=== PATIENT | female | born 1965 | race Caucasian/White ===

== ENCOUNTER → 2017-02-11 | Outpatient (CLI) | payer BC ==
[2017-02-11 09:23] LABS: ALT 38 U/L (9-52); AST 17 U/L (14-36); Alkaline Phosphatase 91 U/L (38-126); Anion Gap 10 mmol/L; Blood Urea Nitrogen 16 mg/dL (7-17); Calcium 9.3 mg/dL (8.4-10.2); Carbon Dioxide 22 mmol/L (22-30); Chloride 108 mmol/L (98-107); Cholesterol 198 mg/dL (<200); Glucose 95 mg/dL (74-99); HDL Cholesterol 50 mg/dL (40-60); Non-African American GFR(MDRD) >60 (>60 ml/min/1.73 sqM); Potassium 4.3 mmol/L (3.5-5.1); Sodium 140 mmol/L (137-145); Total Bilirubin 0.7 mg/dL (0.2-1.3); Total Protein 6.8 g/dL (6.3-8.2); Triglycerides 77 mg/dL (<150)
== END | disposition home or self-care (01) ==
LOC: LABWHC1 08:37
PROVIDERS: ATTEND Internal Medicine Critical Care Medicine
DX: Z00.00 Encounter for general adult medical examination without abnormal findings (principal); C85.90 Non-Hodgkin lymphoma, unspecified, unspecified site; K21.9 Gastro-esophageal reflux disease without esophagitis; D63.8 Anemia in other chronic diseases classified elsewhere; D68.61 Antiphospholipid syndrome
CPT/HCPCS: 36415; 80053; 80061; 82306; 83036; 84439; 84443

== ENCOUNTER → 2017-07-23 | Outpatient (CLI) | payer BC ==
--- NOTE | 2017-07-23 12:17 | US ---
EXAMINATION TYPE: US thyroid st tissue head/neck DATE OF EXAM: 07/23/2017 COMPARISON: NONE CLINICAL HISTORY: R22.0 Localized swelling, mass and lump, head. tenderness within throat previous cyst aspirations GLAND SIZE: Right Lobe: 4.2 x 1.4 x 2.1 cm Overall Parenchyma: heterogenous Left Lobe: 4.6 x 1.2 x 2.2 cm Overall Parenchyma: heterogeneous Isthmus Thickness: 0.7 cm NODULES RIGHT: # of nodules measured on right: 0 LEFT: # of nodules measured on left: 0 ISTHMUS: # of nodules measured in the isthmus: 0 Bilateral neck scanned, no evidence of lymphadenopathy. Diffusely heterogeneous lobes bilaterally, with no defined nodules to follow up with at this time IMPRESSION: Diffusely heterogeneous thyroid gland with no discrete measurable thyroid nodule. Finding may relate to goiter with involuting previously seen subcentimeter cysts or thyroiditis in the setting of a tend er thyroid gland. Correlation with serum laboratory values is recommended.
== END | disposition home or self-care (01) ==
LOC: RADUSWWP 07:14
PROVIDERS: ATTEND Internal Medicine Critical Care Medicine
DX: R22.0 Localized swelling, mass and lump, head (principal); Z88.2 Allergy status to sulfonamides
CPT/HCPCS: 76536

== ENCOUNTER → 2018-01-09 | Outpatient (CLI) | payer BC ==
[2018-01-09 09:44] LABS: Basophils % (A) 1 %; Eosinophils # (A) 0.1 k/uL (0-0.7); Eosinophils % (A) 1 %; HGB 13.6 gm/dL (11.4-16.0); Lymphocytes # (A) 1.1 k/uL (1.0-4.8); Lymphocytes % (A) 16 %; MCH 28.6 pg (25.0-35.0); MCHC 34.1 g/dL (31.0-37.0); MCV 83.9 fL (80.0-100.0); Mean Platelet Volume 6.6; Monocytes # (A) 0.3 k/uL (0-1.0); Monocytes % (A) 4 %; Neutrophils # (A) 5.1 k/uL (1.3-7.7); Neutrophils % (A) 77 %; Platelet Count 293 k/uL (150-450); RBC 4.77 m/uL (3.80-5.40); WBC 6.6 k/uL (3.8-10.6)
[2018-01-09 10:01] LABS: ALT 24 U/L (9-52); AST 19 U/L (14-36); Albumin 4.1 g/dL (3.5-5.0); Alkaline Phosphatase 104 U/L (38-126); Anion Gap 12 mmol/L; Blood Urea Nitrogen 14 mg/dL (7-17); Calcium 9.5 mg/dL (8.4-10.2); Carbon Dioxide 25 mmol/L (22-30); Chloride 103 mmol/L (98-107); Cholesterol 193 mg/dL (<200); Glucose 93 mg/dL (74-99); HDL Cholesterol 49 mg/dL (40-60); LDL Cholesterol,Calculated 124 mg/dL (0-99); Potassium 4.5 mmol/L (3.5-5.1); Sodium 140 mmol/L (137-145); Total Bilirubin 0.7 mg/dL (0.2-1.3); Total Protein 6.6 g/dL (6.3-8.2); Triglycerides 101 mg/dL (<150)
[2018-01-09 10:13] LABS: T4, Free (Free Thyroxine) 1.16 ng/dL (0.78-2.19)
[2018-01-09 18:50] LABS: Hemoglobin A1C 4.9 % (4.0-6.0)
== END | disposition home or self-care (01) ==
LOC: LABWHC1 09:15
PROVIDERS: ATTEND Internal Medicine Critical Care Medicine
DX: Z00.00 Encounter for general adult medical examination without abnormal findings (principal); C85.90 Non-Hodgkin lymphoma, unspecified, unspecified site; D64.9 Anemia, unspecified; K21.9 Gastro-esophageal reflux disease without esophagitis; F42.9 Obsessive-compulsive disorder, unspecified; D68.1 Hereditary factor XI deficiency; G43.909 Migraine, unspecified, not intractable, without status migrainosus
CPT/HCPCS: 36415; 80053; 80061; 82306; 83036; 84439; 84443; 85025

== ENCOUNTER → 2018-06-08 | Outpatient (CLI) | payer BC ==
[2018-06-08 08:53] LABS: Anion Gap 8 mmol/L; Blood Urea Nitrogen 18 mg/dL (7-17); Calcium 9.3 mg/dL (8.4-10.2); Carbon Dioxide 25 mmol/L (22-30); Chloride 108 mmol/L (98-107); Glucose 96 mg/dL (74-99); Potassium 4.6 mmol/L (3.5-5.1); Sodium 141 mmol/L (137-145)
== END | disposition home or self-care (01) ==
LOC: LABWHC1 07:47
PROVIDERS: ATTEND Psychiatry & Neurology Neurology with Special Qualifications in Child Neurology
DX: R55 Syncope and collapse (principal); T75.3XXA Motion sickness, initial encounter
CPT/HCPCS: 36415; 80048

== ENCOUNTER → 2018-06-25 | Outpatient (CLI) | payer BC ==
--- NOTE | 2018-06-26 07:08 | US ---
EXAMINATION TYPE: US carotid duplex BILAT DATE OF EXAM: 06/25/2018 COMPARISON: NONE CLINICAL HISTORY: R55, T75.3XXAMotion sickness, initial encounter. Pt states recent dizziness EXAM MEASUREMENTS: RIGHT: Peak Systolic Velocity (PSV) cm/sec ----- Right CCA: 56.4 ----- Right ICA: 149.7 ----- Right ECA: 95.3 ICA/CCA ratio: 2.7 RIGHT: End Diastole cm/sec ----- Right CCA: 20.6 ----- Right ICA: 64.0 ----- Right ECA: 16.3 LEFT: Peak Systolic Velocity (PSV) cm/sec ----- Left CCA: 56.7 ----- Left ICA: 128.7 ----- Left ECA: 91.5 ICA/CCA ratio: 2.3 LEFT: End Diastole cm/sec ----- Left CCA: 25.4 ----- Left ICA: 60.8 ----- Left ECA: 20.2 VERTEBRALS (direction of flow): Right Vertebral: Antegrade Left Vertebral: Antegrade Rhythm: Normal Elevated velocities distal ICA's bilaterally, more on right. IMPRESSION: Estimated diameter reduction bilaterally of 50-69% Criteria for Assigning % of Stenosis / Diameter reduction (Estimation based on the indirect measurements of the internal carotid artery velocities (ICA PSV). 1. Normal (no stenosis)=ICA PSV < 125 cm/s: ratio < 2.0: ICA EDV<40 cm/s. 2. Less than 50% stenosis=ICA PSV < 125 cm/s: ratio < 2.0: ICA EDV<40 cm/s. 3. 50 to 69% stenosis=ICA PSV of 125 to 230 cm/s: ration 2.0 ? 4.0: ICA EDV 40-100 cm/s. 4. Greater than 70% stenosis to near occlusion= ICA PSV > 230 cm/s: ratio > 4.0: ICA EDV > 100 cm/s. 5. Near occlusion= ICA PSV velocities may be low or undetectable: variable ratio and ICA EDV. 6. Total occlusion=unable to detect flow.
--- NOTE | 2018-06-26 11:40 | ECHOF ---
Referral Reason:R55. T75.XXA MOTION SICKNESS MEASUREMENTS -------- HEIGHT: 182.9 cm WEIGHT: 95.3 kg BP: IVSd: 1.2 cm (0.6 - 1.1) LVIDd: 3.8 cm (3.9 - 5.3) LVPWd: 1.2 cm (0.6 - 1.1) IVSs: 1.4 cm LVIDs: 2.6 cm LVPWs: 1.6 cm Ao Diam: 2.6 cm (2.0 - 3.7) AV Cusp: 2.0 cm (1.5 - 2.6) LA Diam: 2.6 cm (2.7 - 3.8) MV EXCURSION: 22.560 mm (> 18.000) MV EF SLOPE: 134 mm/s (70 - 150) EPSS: 0.3 cm MV E Chon: 0.80 m/s MV DecT: 204 ms MV A Chon: 0.72 m/s MV E/A Ratio: 1.12 AR PHT: 523 ms RAP: 5.00 mmHg RVSP: 17.51 mmHg FINDINGS -------- Sinus rhythm. This was a technically good study. The left ventricular size is normal. There is mild concentric left ventricular hypertrophy. Overa ll left ventricular systolic function is normal with, an EF between 55 - 60 %. The right ventricle is normal in size. The left atrium is normal in size. The right atrium is normal in size. Aortic valve is trileaflet and is mildly thickened. There is mild aortic regurgitation. The mitral valve leaflets are mildly thickened. There is trace mitral regurgitation. Trace tricuspid regurgitation present. The right ventricular systolic pressure, as measured by Dopp ler, is 17.51mmHg. Pulmonic valve appears structurally normal. The aortic root size is normal. Normal inferior vena cava with normal inspiratory collapse consistent with estimated right atrial pre ssure of 5 mmHg. The pericardium is normal. CONCLUSIONS -------- 1. Sinus rhythm. 2. This was a technically good study. 3. The left ventricular size is normal. 4. There is mild concentric left ventricular hypertrophy. 5. Overall left ventricular systolic function is normal with, an EF between 55 - 60 %. 6. The right ventricle is normal in size. 7. The left atrium is normal in size. 8. The right atrium is normal in size. 9. Aortic valve is trileaflet and is mildly thickened. 10. There is mild aortic regurgitation. 11. The mitral valve leaflets are mildly thickened. 12. There is trace mitral regurgitation. 13. Trace tricuspid regurgitation present. 14. The right ventricular systolic pressure, as measured by Doppler, is 17.51mmHg. 15. Pulmonic valve appears structurally normal. 16. The aortic root size is normal. 17. Normal inferior vena cava with normal inspiratory collapse consistent with estimated right atrial pressure of 5 mmHg. 18. The pericardium is normal. CATTLE KILLER: Sophia Duran RDCS
== END | disposition home or self-care (01) ==
LOC: RADUSWWP 15:45
PROVIDERS: ATTEND Psychiatry & Neurology Neurology with Special Qualifications in Child Neurology
DX: R55 Syncope and collapse (principal); T75.3XXA Motion sickness, initial encounter
CPT/HCPCS: 93306; 93880

== ENCOUNTER → 2018-07-03 | Outpatient (CLI) | payer BC ==
--- NOTE | 2018-07-05 13:23 | MR ---
EXAMINATION TYPE: MR brain wo/w con DATE OF EXAM: 07/03/2018 COMPARISON: None HISTORY: SYNCOPE CONTRAST: Performed utilizing 9.5 mL intravenous Gadavist gadolinium contrast. TECHNIQUE: Multiplanar, multiecho imaging on a 3.0 Kaylie magnet is performed through the brain. Stud y is performed within 24 hours of arrival to the hospital. The craniovertebral junction is normal. There is a hyperintensity on T2-weighted sequences within the mid sella. Pituitary stalk is midline. Suprasellar cistern appears within normal limits. Pituitary cyst may be present. Differential could i nclude a Rathke's cleft cyst. This area appears heterogenous and hypointense on postcontrast T1-weigh felipe images. Recommend dedicated pituitary MRI with contrast for additional evaluation. Diffusion-weighted imaging is performed. No abnormal hyperintensity is present to suggest an acute i ntracranial infarct or acute ischemic change. Signal through the remaining portion brain appears within normal limits. Ventricles and sulci are appropriate for the patient age. Abnormal enhancement is not identified. IMPRESSIONS: 1. Suspected pituitary cyst. Recommend additional workup with contrast pituitary MRI.
== END | disposition home or self-care (01) ==
LOC: RADMRIMAIN 17:16
PROVIDERS: ATTEND Psychiatry & Neurology Neurology with Special Qualifications in Child Neurology
DX: R55 Syncope and collapse (principal); T75.3XXA Motion sickness, initial encounter; G43.009 Migraine without aura, not intractable, without status migrainosus; R20.0 Anesthesia of skin; R20.2 Paresthesia of skin
CPT/HCPCS: 70553; A9585

== ENCOUNTER → 2019-02-03 | Outpatient (CLI) | payer MEDICARE ==
[2019-02-03 11:03] LABS: Basophils % (A) 1 %; Eosinophils # (A) 0.1 k/uL (0-0.7); Eosinophils % (A) 2 %; HCT 42.8 % (34.0-46.0); HGB 13.7 gm/dL (11.4-16.0); Lymphocytes % (A) 16 %; MCH 27.3 pg (25.0-35.0); MCHC 32.1 g/dL (31.0-37.0); MCV 85.2 fL (80.0-100.0); Mean Platelet Volume 7.4; Monocytes # (A) 0.3 k/uL (0-1.0); Monocytes % (A) 4 %; Neutrophils # (A) 4.9 k/uL (1.3-7.7); Neutrophils % (A) 76 %; Platelet Count 281 k/uL (150-450); RBC 5.02 m/uL (3.80-5.40); RDW 14.9 % (11.5-15.5); WBC 6.4 k/uL (3.8-10.6)
[2019-02-03 16:15] LABS: Vitamin D 25 Hydroxy 46.6 ng/mL (30.0-100.0)
[2019-02-03 16:31] LABS: Albumin 4.3 g/dL (3.80-4.90); Albumin/Globulin Ratio 2.26 (1.60-3.17); Anion Gap 6.5 mmol/L (4.00-12.00); Calcium 8.9 mg/dL (8.7-10.3); Carbon Dioxide 25.5 mmol/L (21.6-31.8); Globulin 1.9 g/dL (1.6-3.3); LDL Cholesterol,Calculated 77.4 mg/dL (0.0-131.0); Potassium 4.4 mmol/L (3.5-5.5); Total Bilirubin 0.5 mg/dL (0.2-1.2); Total Protein 6.2 g/dL (6.2-8.2); VLDL Calculation 16.6 mg/dL (5.00-40.00)
[2019-02-03 16:47] LABS: T4, Free (Free Thyroxine) 0.9 ng/dL (0.80-1.80)
[2019-02-03 16:48] LABS: Hemoglobin A1C 5.4 % (4.0-6.0)
[2019-02-03 17:42] LABS: Cardiolipin Ab IgG Interp NEGATIVE (NEGATIVE); Cardiolipin Ab IgM Interp NEGATIVE (NEGATIVE); Cardiolipin IgA Antibody <0.5 U/mL; Cardiolipin IgM Antibody 0.3 U/mL
== END | disposition home or self-care (01) ==
LOC: LABWHC1 10:06
PROVIDERS: ATTEND Psychiatry & Neurology Neurology with Special Qualifications in Child Neurology
DX: Z00.00 Encounter for general adult medical examination without abnormal findings (principal); I80.9 Phlebitis and thrombophlebitis of unspecified site; L92.0 Granuloma annulare; C85.90 Non-Hodgkin lymphoma, unspecified, unspecified site; K76.9 Liver disease, unspecified; D68.61 Antiphospholipid syndrome; K21.9 Gastro-esophageal reflux disease without esophagitis; D64.9 Anemia, unspecified; Z86.73 Personal history of transient ischemic attack (TIA), and cerebral infarction without residual deficits
CPT/HCPCS: 36415; 80053; 80061; 82306; 83036; 84439; 84443; 85025; 86147

== ENCOUNTER → 2019-04-05 | Outpatient (CLI) | payer BC ==
[2019-04-05 16:10] LABS: T4, Free (Free Thyroxine) 0.8 ng/dL (0.80-1.80)
[2019-04-05 17:53] LABS: Hemoglobin A1C 5.5 % (4.0-6.0)
[2019-04-05 18:34] LABS: ACTH 19.7 pg/mL (0.00-45.99)
== END | disposition home or self-care (01) ==
LOC: LABWHC1 08:48
PROVIDERS: ATTEND Internal Medicine Endocrinology, Diabetes & Metabolism
DX: D35.2 Benign neoplasm of pituitary gland (principal)
CPT/HCPCS: 36415; 82024; 82533; 82670; 83001; 83002; 83036; 84146; 84305; 84439; 84443

== ENCOUNTER → 2019-10-26 | Outpatient (CLI) | payer MEDICARE ==
[2019-10-26 07:35] LABS: Basophils % (A) 1 %; Eosinophils # (A) 0.2 k/uL (0-0.7); Eosinophils % (A) 3 %; HCT 40.4 % (34.0-46.0); HGB 13.1 gm/dL (11.4-16.0); Lymphocytes # (A) 1.1 k/uL (1.0-4.8); Lymphocytes % (A) 16 %; MCH 27.6 pg (25.0-35.0); MCHC 32.4 g/dL (31.0-37.0); MCV 85.2 fL (80.0-100.0); Mean Platelet Volume 6.7; Monocytes # (A) 0.3 k/uL (0-1.0); Monocytes % (A) 4 %; Neutrophils # (A) 5.3 k/uL (1.3-7.7); Neutrophils % (A) 74 %; Platelet Count 282 k/uL (150-450); RBC 4.74 m/uL (3.80-5.40); RDW 13.7 % (11.5-15.5); WBC 7.2 k/uL (3.8-10.6)
[2019-10-26 11:29] LABS: African American GFR (CKD) 96.2 (60.0-200.0); Albumin 4.4 g/dL (3.80-4.90); Albumin/Globulin Ratio 2.44 (1.60-3.17); Calcium 9.2 mg/dL (8.7-10.3); Chol/HDL Ratio 3.05; Globulin 1.8 g/dL (1.6-3.3); LDL Cholesterol,Calculated 73.6 mg/dL (0.0-131.0); Potassium 4.2 mmol/L (3.5-5.5); Total Bilirubin 0.4 mg/dL (0.3-1.2); Total Protein 6.2 g/dL (6.2-8.2); VLDL Calculation 14.4 mg/dL (5.00-40.00)
[2019-10-26 14:02] LABS: Hemoglobin A1C 5.2 % (4.0-6.0)
== END | disposition home or self-care (01) ==
LOC: LABWHC1 06:59
PROVIDERS: ATTEND Internal Medicine Critical Care Medicine
DX: C88.0 Waldenstrom macroglobulinemia (principal); C85.90 Non-Hodgkin lymphoma, unspecified, unspecified site; E78.00 Pure hypercholesterolemia, unspecified; I80.9 Phlebitis and thrombophlebitis of unspecified site; K76.9 Liver disease, unspecified; D68.61 Antiphospholipid syndrome; D64.9 Anemia, unspecified
CPT/HCPCS: 36415; 80053; 80061; 82306; 83036; 84439; 84443; 84481; 85025

== ENCOUNTER → 2020-09-05 | Outpatient (CLI) | payer MEDICARE ==
[2020-09-05 09:43] VITALS: BP 115/76; PULSE 92; RESP 18; TEMP 97.5
--- NOTE | 2020-09-05 10:25 | P.HPOB ---
History of Present Illness H&P Date: 09/05/20 Chief Complaint: The patient is here for her routine gynecologic exam. This is a 54-year-old with an LMP of 08/05/2021. Menstrual periods are still regular every month. She has been experiencing more hot flashes. She was tempted to use black cohosh for these symptoms, but was told she should not use this if she has had breast cancer or is at high risk for breast cancer. Therefore, she did not use black cohosh. She is otherwise without complaints. Review of Systems The patient has lost 3 pounds over the last year. She denies respiratory, cardiac, or G.I. problems. Past Medical History Past Medical History: Blood Disorder, Cancer, GERD/Reflux Additional Past Medical History / Comment(s): Waldenstrom lymphoplasmacytic lymphoma 2015, diagnosed at [facility] and tx by Dr. Arellano; spleenomegaly; HYPOGLYCEMIA; ANTIPHOSPHOLIPID ANTIBODY SYNDROME. Migraine. PAST FORMULATION SCIENTIST HISTORY: She has no history of STDs. 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 History of Any Multi-Drug Resistant Organisms: None Reported Past Surgical History: Orthopedic Surgery, Tonsillectomy Additional Past Surgical History / Comment(s): Bone marrow aspirations and biopsies-done at [place] 12/2015, RT ankle/foot surgeryfor fascitis, D&C, hysteroscopy. Colonoscopy 2014(3rd), EGD's 08/2015, bilateral leg vein strippings. Past Anesthesia/Blood Transfusion Reactions: No Reported Reaction Past Psychological History: Anxiety Additional Psychological History / Comment(s): OCD. Pt resides with her spouse and 3 children under age 18yrs. She uses no assistive device. She is completely independent. 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 No recent travels. No animal exposures. Family history is fasting the father of male breast cancer he approximate 4 years after his diagnosis. That was 21 years ago. Smoking Status: Former smoker Past Alcohol Use History: None Reported Additional Past Alcohol Use History / Comment(s): SMOKED 6 YRS ON/OFF, 1/2 PPD- quit in 1997. Past Drug Use History: None Reported Additional History: She is and is a retired schoolteacher. - Past Family History Mother Family Medical History: Cancer Additional Family Medical History / Comment(s): Breast & Kidney cancers. Mother is living. Father Family Medical History: Cancer Additional Family Medical History / Comment(s): Father of breast cancer at the age of 58 yrs. A paternal aunt had breast cancer. The patient is BRCA negative. Medications and Allergies Home Medications Medication Instructions Recorded Confirmed Type Aspirin 325 mg PO DAILY 08/16/15 09/05/20 History Escitalopram [Lexapro] 30 mg PO DAILY 08/16/15 09/05/20 History Ferrous Sulfate [Iron (65 MG 325 mg PO DAILY 01/17/16 09/05/20 History Elemental)] Multivitamins, Thera [Multivitamin 1 tab PO DAILY 01/17/16 09/05/20 History (formulary)] Cholecalciferol [Vitamin D3] 6,000 unit PO DAILY 11/25/18 09/05/20 History Omeprazole 20 mg PO DAILY 11/25/18 09/05/20 History Allergies Allergy/AdvReac Type Severity Reaction Status Date / Time Sulfa (Sulfonamide Allergy Rash/Hives Verified 09/05/20 09:35 Antibiotics) Exam Vital Signs Temp Pulse Resp BP Pulse Ox 09/05/20 09:37 97.5 F L 92 18 115/76 99 Intake and Output 09/04/20 09/05/20 09/05/20 22:59 06:59 14:59 Other: Weight 96.162 kg Height 5 feet 10 inches, weight 212 pounds, BMI 30.4. This is a well-developed well-nourished white female who is alert and oriented times 3 in no acute distress. HEENT: Within normal limits. NECK: Supple without mass or thyromegaly. CHEST AND LUNGS: Clear to auscultation. HEART: Regular rate and rhythm. BREASTS: Are without mass or discharge. AXILLARY EXAM: Negative for adenopathy. BACK: Negative for CVA tenderness. ABDOMEN: Soft, nontender, without palpable masses. PELVIC EXAM: Normal external genitalia. Cervix and vagina appear normal. There is no unusual discharge. There is no evidence of prolapse. The uterus is retroverted, multiparous nongravid size and nontender. There are no palpable adnexal masses or tenderness. RECTAL EXAM: Rectovaginal exam is negative for mass or tenderness and is negative for occult blood. EXTREMITIES: Nontender. IMPRESSION: 1. 54-year-old perimenopausal female with normal gynecologic exam. 2. Increasing vasomotor symptoms consistent with the perimenopause. 3. Strong family history of breast cancer. The patient is BRCA negative. PLAN: 1. Pap smear on 11/25/2018 was negative. Pap smear was deferred. 2. Self breast awareness was discussed with the patient. 3. Breast imaging has been done through Dr. Villalobos at [facility]. She continues to have yearly mammograms and yearly MRIs of the breast. These are alternated every 6 months. Her last mammogram per the patient was August 2020 and was normal per the patient. 4. Osteoporosis prevention was discussed. I have stressed the importance of adequate calcium, vitamin D and regular exercise. Recommended amounts of calcium and vitamin D were also discussed. 5. She will keep a menstrual calendar and call if menstrual problems. We have discussed options for vasomotor symptoms. I am recommending against HRT because of her strong family history of breast cancer. Conservative management was discussed. 6. She was advised to return in one year for her annual well woman exam.
== END | disposition home or self-care (01) ==
LOC: WWCWWP 09:27
PROVIDERS: ATTEND Obstetrics & Gynecology
DX: Z53.9 Procedure and treatment not carried out, unspecified reason (principal)

== ENCOUNTER → 2020-11-29 | Outpatient (CLI) | payer MEDICARE ==
[2020-11-29 17:43] LABS: Chol/HDL Ratio 3.26; LDL Cholesterol,Calculated 76.4 mg/dL (0.0-131.0); VLDL Calculation 18.6 mg/dL (5.00-40.00)
[2020-11-29 18:40] LABS: Hemoglobin A1C 5.7 % (4.0-6.0)
== END | disposition home or self-care (01) ==
LOC: LABWHC1 09:19
PROVIDERS: ATTEND Internal Medicine Critical Care Medicine
DX: Z00.00 Encounter for general adult medical examination without abnormal findings (principal); C85.90 Non-Hodgkin lymphoma, unspecified, unspecified site; K21.9 Gastro-esophageal reflux disease without esophagitis; E55.9 Vitamin D deficiency, unspecified; E78.00 Pure hypercholesterolemia, unspecified; D64.9 Anemia, unspecified
CPT/HCPCS: 36415; 80061; 82306; 83036; 84439; 84443

== ENCOUNTER → 2021-04-07 | Outpatient (CLI) | payer MEDICARE ==
[2021-04-07 17:47] LABS: African American GFR (CKD) 112.3 (60.0-200.0); BUN/Creat Ratio 28.57 Ratio (12.00-20.00); Calcium 9.1 mg/dL (8.7-10.3); Non-African American GFR(CKD) 96.9 (60.0-200.0); Potassium 4.1 mmol/L (3.5-5.5)
[2021-04-07 17:57] LABS: Estradiol 70.4 pg/mL
[2021-04-07 17:59] LABS: Follicle Stimulating Hormone 8.8 mIU/mL; Luteinizing Hormone 7.7 mIU/mL; Prolactin 10.1 ng/mL (2.8-29.2)
[2021-04-07 20:33] LABS: Hemoglobin A1C 5.1 % (4.0-6.0)
--- NOTE | 2021-04-10 07:51 | PN ---
PROGRESS NOTE DATE OF SERVICE: 04/09/2021. REASON FOR FOLLOWUP: Right lower extremity wound and bacteremia. INTERVAL HISTORY: Patient is afebrile. The patient is breathing comfortably. Denies any chest pain, shortness of breath. No cough. No nausea. No vomiting. No abdominal pain or worsening pain to the right leg. PHYSICAL EXAMINATION: Blood pressure 155/69 with pulse of 79, temperature 98.4. She is 99% on 2 L nasal cannula. General description is a middle-aged female lying in bed in no distress. Respiratory system: Unlabored breathing. Clear to auscultation anteriorly. Heart S1, S2. Regular rate and rhythm. Abdomen: Soft, no tenderness. Right leg wound superficial with surrounding swelling and redness. Did have a deep wound to the right heel and right big toe area. LABS: No new labs have been obtained today. DIAGNOSTIC IMPRESSION AND PLAN: Patient with right leg venous stasis ulcer with secondary cellulitis with a pressure ulcer of the right heel and wound to the right big toe with concern for secondary deep infection and bacteremia. Patient is covered with Meropenem. Continue local wound care with Medihoney to the heel and Aquacel silver to the leg wound followed by moist compression and close outpatient followup. MMODL / IJN: [id number] /
== END | disposition home or self-care (01) ==
LOC: LABWHC1 09:19
PROVIDERS: ATTEND Internal Medicine
DX: D35.2 Benign neoplasm of pituitary gland (principal); L68.0 Hirsutism
CPT/HCPCS: 36415; 80048; 82024; 82533; 82626; 82670; 83001; 83002; 83036; 84146; 84305; 84403; 84439; 84443

== ENCOUNTER → 2021-06-06 | Outpatient (CLI) | payer MEDICARE ==
[2021-06-06 18:59] LABS: Chol/HDL Ratio 3.47 Ratio; HDL Cholesterol 42.7 mg/dL (40.00-60.00); LDL Cholesterol,Calculated 82.3 mg/dL (0.0-131.0)
== END | disposition home or self-care (01) ==
LOC: LABWHC1 09:47
PROVIDERS: ATTEND Internal Medicine
DX: D35.2 Benign neoplasm of pituitary gland (principal); L68.0 Hirsutism
CPT/HCPCS: 36415; 80061

== ENCOUNTER → 2021-06-20 | Outpatient (CLI) | payer MEDICARE | END | disposition home or self-care (01) | LOC: LABWHC1 09:47 | PROVIDERS: ATTEND Internal Medicine | DX: D35.2 Benign neoplasm of pituitary gland (principal); L68.0 Hirsutism | CPT/HCPCS: 36415; 82627 ==

== ENCOUNTER → 2021-11-06 | Outpatient (CLI) | payer MEDICARE ==
[2021-11-06 16:27] VITALS: BP 134/87; PULSE 74; RESP 18; TEMP 97.6
--- NOTE | 2021-11-06 17:23 | P.HPOB ---
History of Present Illness H&P Date: 11/06/21 Chief Complaint: The patient is here for her routine gynecologic exam. This is a 56-year-old with an LMP of 10/02/2021. Her menstrual periods have become very light and less frequent. From November until April of last year, menstrual periods were about monthly typically lasting 5-6 days. He had 1 menstrual period that lasted 14 days in March. During the fall of last year, she had very scant flow and some spotting about once a month. She had no bleeding in September and just a small amount of spotting on 10/02/2021. She does have mild hot flashes but these seem to BX revealed better than last year. Review of Systems The patient has gained 10 pounds over the last year. She denies respiratory, cardiac, or G.I. problems. Past Medical History Past Medical History: Blood Disorder, Cancer, GERD/Reflux Additional Past Medical History / Comment(s): Waldenstrom lymphoplasmacytic lymphoma 2015, diagnosed at [facility] and tx by Dr. Arellano; spleenomegaly; HYPOGLYCEMIA; ANTIPHOSPHOLIPID ANTIBODY SYNDROME. Migraine. 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 History of Any Multi-Drug Resistant Organisms: None Reported Past Surgical History: Orthopedic Surgery, Tonsillectomy Additional Past Surgical History / Comment(s): Bone marrow aspirations and biopsies-done at [place] 12/2015, RT ankle/foot surgeryfor fascitis, D&C, hysteroscopy. Colonoscopy 2014(3rd), EGD's 08/2015, bilateral leg vein strippings. Past Anesthesia/Blood Transfusion Reactions: No Reported Reaction Past Psychological History: Anxiety Additional Psychological History / Comment(s): OCD. Pt resides with her spouse and 3 children under age 18yrs. She uses no assistive device. She is completely independent. 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 No recent travels. No animal exposures. Family history is fasting the father of male breast cancer he approximate 4 years after his diagnosis. That was 21 years ago. Smoking Status: Former smoker Past Alcohol Use History: None Reported Additional Past Alcohol Use History / Comment(s): SMOKED 6 YRS ON/OFF, 1/2 PPD- quit in 1997. Past Drug Use History: None Reported Additional History: She is and is a retired schoolteacher. - Past Family History Mother Family Medical History: Cancer Additional Family Medical History / Comment(s): Breast & Kidney cancers. Mother is living. Father Family Medical History: Cancer Additional Family Medical History / Comment(s): Father of breast cancer at the age of 58 yrs. A paternal aunt had breast cancer. The patient is BRCA negative. Medications and Allergies Home Medications Medication Instructions Recorded Confirmed Type Aspirin 325 mg PO DAILY 08/16/15 11/06/21 History Escitalopram [Lexapro] 30 mg PO DAILY 08/16/15 11/06/21 History Ferrous Sulfate [Iron (65 MG 325 mg PO DAILY 01/17/16 11/06/21 History Elemental)] Multivitamins, Thera [Multivitamin 1 tab PO DAILY 01/17/16 11/06/21 History (formulary)] Cholecalciferol [Vitamin D3] 6,000 unit PO DAILY 11/25/18 11/06/21 History Omeprazole 20 mg PO DAILY 11/25/18 11/06/21 History Allergies Allergy/AdvReac Type Severity Reaction Status Date / Time Sulfa (Sulfonamide Allergy Rash/Hives Verified 11/06/21 16:22 Antibiotics) Exam Vital Signs Temp Pulse Resp BP Pulse Ox 11/06/21 16:24 97.6 F 74 18 134/87 96 Intake and Output 11/06/21 11/06/21 11/06/21 06:59 14:59 22:59 Other: Weight 100.698 kg Height 5 feet 10 inches, weight 222 pounds, BMI 31.9. This is a well-developed well-nourished white female who is alert and oriented times 3 in no acute distress. HEENT: Within normal limits. NECK: Supple without mass or thyromegaly. CHEST AND LUNGS: Clear to auscultation. HEART: Regular rate and rhythm. BREASTS: Are without mass or discharge. AXILLARY EXAM: Negative for adenopathy. BACK: Negative for CVA tenderness. ABDOMEN: Soft, nontender, without palpable masses. PELVIC EXAM: Normal external genitalia. Cervix and vagina appear normal. There is no unusual discharge. There is no evidence of prolapse. The uterus is midposition, nongravid size and nontender. There are no palpable adnexal masses or tenderness. RECTAL EXAM: Rectovaginal exam is negative for mass or tenderness and is negative for occult blood. EXTREMITIES: Nontender. IMPRESSION: 1. 56-year-old perimenopausal female with oligomenorrhea and mild vasomotor symptoms with normal gynecologic exam. 2. Strong family history of breast cancer. The patient is BRCA negative. PLAN: 1. Pap smear cotest was performed. 2. Self breast awareness was discussed with the patient. We have also discussed symptoms associated with inflammatory breast cancer. 3. The patient has been doing her mammograms and breast MRIs at [facility]. She has both of them scheduled for the near future. She typically was doing mammograms yearly and MRIs yearly and they were alternated every 6 months, however, she has missed mammograms and MRIs during the past 1-2 years and she was advised to have them both done now. This is done through her breast doctor, Dr. Crane. She is contemplating doing the mammograms and breast MRIs locally at [facility] in the future. 4. Osteoporosis prevention was discussed. I have stressed the importance of adequate calcium, vitamin D and regular exercise. Recommended amounts of calcium and vitamin D were also discussed. 5. She has completed her Covid vaccination series and has received her booster. 6. She was advised to return in one year for her annual well woman exam.
== END ==
LOC: WWCWWP 16:06
PROVIDERS: ATTEND Obstetrics & Gynecology
DX: Z01.419 Encounter for gynecological examination (general) (routine) without abnormal findings (principal); N91.5 Oligomenorrhea, unspecified; G43.909 Migraine, unspecified, not intractable, without status migrainosus; F41.9 Anxiety disorder, unspecified; Z87.891 Personal history of nicotine dependence; Z78.0 Asymptomatic menopausal state; Z80.3 Family history of malignant neoplasm of breast; Z88.2 Allergy status to sulfonamides

== ENCOUNTER → 2021-11-24 | Outpatient (CLI) | payer MEDICARE ==
[2021-11-24 16:14] LABS: ALT 25 U/L (8-44); AST 19 U/L (13-35); African American GFR (CKD) 95.6 (60.0-200.0); Albumin 4.2 g/dL (3.8-4.9); Albumin/Globulin Ratio 1.81 (1.60-3.17); Alkaline Phosphatase 154 U/L (41-126); BUN/Creat Ratio 20.63 Ratio (12.00-20.00); Bilirubin, Conjugated <0.20 mg/dL (0.20-0.40); Blood Urea Nitrogen 16.4 mg/dL (9.0-27.0); Calcium 9.3 mg/dL (8.7-10.3); Carbon Dioxide 23.8 mmol/L (20.0-27.5); Chloride 105 mmol/L (96-109); Chol/HDL Ratio 3.15 Ratio; Globulin 2.3 g/dL (1.6-3.3); Glucose 95 mg/dL (70-110); LDL Cholesterol,Calculated 83.2 mg/dL (0.0-131.0); Non-African American GFR(CKD) 82.5 (60.0-200.0); Potassium 4.6 mmol/L (3.5-5.5); Sodium 141 mmol/L (135-145); Total Protein 6.6 g/dL (6.2-8.2); VLDL Calculation 17.24 mg/dL (5.00-40.00)
== END | disposition home or self-care (01) ==
LOC: LABWHC1 09:42
PROVIDERS: ATTEND Internal Medicine Critical Care Medicine
DX: Z00.00 Encounter for general adult medical examination without abnormal findings (principal); E78.00 Pure hypercholesterolemia, unspecified; K76.9 Liver disease, unspecified; R53.83 Other fatigue; R05.9 Cough, unspecified
CPT/HCPCS: 36415; 80053; 80061; 82248; 82306; 83036; 84439; 84443

== ENCOUNTER → 2023-05-08 | Outpatient (CLI) | payer MEDICARE ==
[2023-05-08 16:25] LABS: Basophils # (A) 0.04 X 10*3/uL (0.00-0.10); Basophils % (A) 0.7 %; Eosinophils # (A) 0.12 X 10*3/uL (0.04-0.35); HCT 42.7 % (37.2-50.0); HGB 13.8 d/dL (12.0-17.0); Lymphocytes # (A) 1.19 X 10*3/uL (0.90-5.00); Lymphocytes % (A) 19.7 %; MCH 29.4 pg (27.0-32.0); MCHC 32.3 d/dL (32.0-37.0); MCV 90.9 FL (80.0-97.0); Mean Platelet Volume 10.1 FL (9.5-12.2); Monocytes # (A) 0.34 X 10*3/uL (0.20-1.00); Monocytes % (A) 5.6 %; NRBC Per 100 WBC 0 X 10*3/uL (0.00-0.01); Neutrophils # (A) 4.31 X 10*3/uL (1.80-7.70); Neutrophils % (A) 71.5 %; Platelet Count 263 X 10*3/uL (140-440); RDW 14.4 % (11.5-14.5); WBC 6.03 X 10*3/uL (4.50-10.00)
[2023-05-08 16:41] LABS: ALT 28 U/L (8-49); AST 23 U/L (13-35); Albumin 4.5 d/dL (3.8-4.9); Albumin/Globulin Ratio 2.05 Ratio (1.60-3.17); Alkaline Phosphatase 145 U/L (41-126); BUN/Creat Ratio 14.78 Ratio (12.00-20.00); Blood Urea Nitrogen 13.3 mg/dL (9.0-27.0); Calcium 9.6 mg/dL (8.7-10.3); Chloride 102 mmol/L (96-109); Chol/HDL Ratio 3.24 Ratio; Globulin 2.2 d/dL (1.6-3.3); Glucose 89 mg/dL (70-110); Potassium 4.8 mmol/L (3.5-5.5); Sodium 140 mmol/L (135-145); T4, Free (Free Thyroxine) 1.03 ng/dL (0.80-1.80); Total Bilirubin 0.4 mg/dL (0.3-1.2); Total Protein 6.7 d/dL (6.2-8.2)
== END | disposition home or self-care (01) ==
LOC: LABWHC1 10:09
PROVIDERS: ATTEND Internal Medicine Critical Care Medicine
DX: I80.9 Phlebitis and thrombophlebitis of unspecified site (principal); C88.0 Waldenstrom macroglobulinemia; C85.90 Non-Hodgkin lymphoma, unspecified, unspecified site; D64.9 Anemia, unspecified; E78.00 Pure hypercholesterolemia, unspecified; K76.9 Liver disease, unspecified; D68.61 Antiphospholipid syndrome
CPT/HCPCS: 36415; 80053; 80061; 82306; 83036; 84439; 84443; 85025

== ENCOUNTER → 2023-07-30 | Outpatient (CLI) | payer MEDICARE ==
--- NOTE | 2023-07-30 11:45 | BD ---
EXAMINATION TYPE: Axial Bone Density DATE OF EXAM: 07/30/2023 CLINICAL HISTORY: 57 years old Female. ICD-10 CODE: Z78.0 POST MENOPAUSAL Height: 69in Weight: 225lb FRAX RISK QUESTIONS: Secondary Osteoporosis: RISK FACTORS HISTORY OF: Family History of Osteoporosis: yes Active: yes Postmenopausal woman: yes Poor Health: fair MEDICATIONS: Additional Medications: cholesterol med, vitamin d, tums Additional History: lymphoma, scoliosis EXAM MEASUREMENTS: Bone mineral densitometry was performed using the Zoyi System. Bone mineral density as measured about the Lumbar spine is: ----- L1-L4(G/cm2): 1.381 T Score Values are as follows: ----- L1: 1.7 ----- L2: 2.1 ----- L3: 1.1 ----- L4: 1.7 ----- L1-L4: 1.7 Z Score Values are as follows: ----- L1: 1.6 ----- L2: 2.0 ----- L3: 1.1 ----- L4: 1.6 ----- L1-L4: 1.6 First dexa at [facility] Bone mineral density about the R hip (g/cm2): 0.984 Bone mineral density about the L hip (g/cm2): 0.946 T Score values are as follows: -----R Neck: -0.3 -----L Neck: -0.6 -----R Total: -0.2 -----L Total: -0.5 Z Score values are as follows: -----R Neck: 0.1 -----L Neck: -0.2 -----R Total: -0.2 -----L Total: -0.5 FRAX%s: The graph provided illustrates a 6% chance for a major osteoporotic fx and a 0.2% chance for the hips probability for fx in 10 years time. IMPRESSION: Normal (Values between +1 and -1 indicate normal bone mass). Consider repeating this study in 5 year s or sooner if there is some new clinical indication. NOTE: T-SCORE=SD OF THE YOUNG ADULT MEAN.
--- NOTE | 2023-08-01 12:36 | MM ---
Reason for Exam: Screening (asymptomatic). Last mammogram was performed 1 year(s) and 8 month(s) ago. Patient History: Menarche at age 11. First Full-Term at age 35. Late child-bearing (after 30). Patient tested for BRCA1 outcome was negative. Patient tested for BRCA2 outcome was negative. Paternal aunt had breast cancer at or over age 50. Maternal cousin had breast cancer at or over age 50. Mother had breast cancer, age 60. Father had breast cancer at or over age 50. Risk Values: Jalyn 5 year model risk: 2.7%. NCI Lifetime model risk: 14.9%. Prior Study Comparison: 10/16/2001 Bilateral Screening Mammogram, [facility]. 01/14/2003 Bilateral Screening Mammogram, [facility]. 11/09/2004 Bilateral Screening Mammogram, [facility]. 08/11/2020 Bilateral Screening Mammogram, Unknown. 11/01/2021 Bilateral Screening Mammogram, Unknown. Tissue Density: There are scattered fibroglandular densities. Findings: Analyzed By CAD. There is no suspicious group of microcalcifications or new suspicious mass. Overall Assessment: Negative, BI-RAD 1 Management: Screening Mammogram of both breasts in [address] [facility] will attempt to contact patient to return for supplemental views and ultrasound if indicated. Patient should continue monthly self-breast exams. A clinical breast exam by your physician is recommended on an annual basis. This exam should not preclude additional follow-up of suspicious palpable abnormalities. Note on Jalyn scores and lifetime risk: 1. A Jalyn score greater than 3% is considered moderate risk. If this is the case, consider specialist referral to assess eligibility for a risk reducing agent. 2. If overall lifetime risk for the development of breast cancer is 20% or higher, the patient may qualify for future screening with alternating mammogram and breast MRI. Electronically signed and approved by: Issa Gillespie DO
== END | disposition home or self-care (01) ==
LOC: RADMAMWWP 07:42
PROVIDERS: ATTEND Obstetrics & Gynecology
DX: Z12.31 Encounter for screening mammogram for malignant neoplasm of breast (principal); Z78.0 Asymptomatic menopausal state; Z80.3 Family history of malignant neoplasm of breast
CPT/HCPCS: 77063; 77067; 77080

== ENCOUNTER → 2023-09-16 | Outpatient (CLI) | payer MEDICARE ==
[2023-09-16 10:40] VITALS: BP 137/90; PULSE 91; RESP 17; TEMP 98.3
--- NOTE | 2023-09-16 10:56 | P.PN ---
Progress Note - Text Progress Note Date: 09/16/23 Chief Complaint: Vaginal spotting for the past month HPI: This is a 57-year-old with an LMP of 06/2022. The patient had been amenorrheic until about 1 month ago when she started having some vaginal spotting. She has noticed spotting most days during the past month, but has not noticed any today. She denies any abdominal or pelvic cramping. She states the bleeding has not been as heavy as a period. The blood has been brownish red in color. She states the bleeding is not associated with sexual intercourse. She did have hot flashes up until about 8 months ago and has not had hot flashes since then. She denies taking any hormone replacement therapy or supplements for menopausal symptoms. ROS: Unremarkable. PE: Blood pressure: 137/90, Height: 5 feet 11 inches, Weight: 228 pounds, Temperature: 98.3, Pulse: 91 pulse oximeter 96%.. This is a well developed, well nourished, White female who is alert and orientedx3, in no acute distress. Abdomen: Soft, nontender, without palpable masses. Pelvic exam: External genitalia with mild atrophy. Cervix and vagina appear normal with mild atrophy. Cervix appears multiparous. There is no unusual discharge and no evidence of blood in the vagina on inspection. There is no cervical motion tenderness. Bimanual examination: Uterus is midposition, nongravid size, and nontender. There are no palpable adnexal masses or tenderness. Last Pap smear on 11/06/2021 showed ASCUS with negative high-risk HPV testing. The plan was to repeat the Pap smear cotest in 2-3 years after the last one. Impression: 1. 57-year-old menopausal female with vaginal spotting after 1-1/2 years of amenorrhea. Postmenopausal bleeding. Plan: 1. Pelvic ultrasound will be scheduled to determine the endometrial thickness. If signs of endometrial thickening, we will plan on sampling the endometrium with an endometrial biopsy. Consideration for progesterone therapy if signs of disordered lining, endometrial hypertrophy, or persistent vaginal bleeding with the above workup. Consider other surgical options if evidence of atypical endometrial hyperplasia or greater. Time spent with the patient: 20 minutes
== END ==
LOC: WWCWWP 10:04
PROVIDERS: ATTEND Obstetrics & Gynecology
DX: N91.2 Amenorrhea, unspecified (principal); N95.0 Postmenopausal bleeding; Z88.2 Allergy status to sulfonamides; Z87.891 Personal history of nicotine dependence

== ENCOUNTER → 2023-09-17 | Day surgery (SDC) | payer MEDICARE ==
[2023-09-17 11:47] VITALS: RESP 17; TEMP 98.3
--- NOTE | 2023-09-17 12:28 | P.PCN ---
Date of Procedure: 09/17/23 Preoperative Diagnosis: Postmenopausal bleeding. Postoperative Diagnosis: Postmenopausal bleeding. Procedure(s) Performed: Endometrial biopsy Anesthesia: none Surgeon: Douglas Birmingham Estimated Blood Loss (ml): 1 Pathology: other (Endometrial tissue) Condition: stable Disposition: same day Indications for Procedure: This was a 57-year-old female with an LMP of 06/2022 who developed vaginal spotting on most days during the past month. She was scheduled for an endometrial biopsy because of the postmenopausal bleeding. Operative Findings: The uterus is multiparous and feels either retroverted or there is the possibility of a posterior uterine fibroid with bimanual examination. The uterus sounded to 8.5 cm. A small amount of tissue was obtained. Description of Procedure: Preprocedure vitals: Blood pressure 156/87, height 5 feet 11 inches, weight 228 pounds, temperature 98.3, pulse 102, pulse oximeter 97%. The procedure was explained to the patient. Possible findings were also discussed with the patient. There is also a discussion of possible risks and complications including bleeding, infection as well as uterine perforation and damage to surrounding structures. All questions were answered. The patient was placed in the lithotomy position. Bimanual examination reveals a multiparous nongravid sized uterus which is either retroverted or the possibility of a posterior uterine fibroid is also considered. There are no palpable adnexal masses or tenderness. A speculum was inserted into the vagina and the cervix and vagina were prepped with Betadine solution. A 3 mm endometrial biopsy instrument was placed to the fundus without difficulty. The uterus sounded to 8.5 cm. Negative pressure was applied and a back and forth rotating motion was used obtain a small amount of tissue. The procedure was rep eated and a small amount of tissue was again obtained. The patient tolerated the procedure well. The estimated blood loss was 1 mL. There were no complications. Postprocedure blood pressure: 149/94, pulse 100, pulse oximeter 96%. Patient was instructed to call if she has heavy bleeding, unusual pain, fever, or problems. She is scheduled for a pelvic ultrasound on 09/19/2023. This will be used to measure the endometrial thickness as well as to see if there are signs of uterine fibroids as this is considered a possibility based on the bimanual examination.
[2023-09-17 12:35] VITALS: BP 149/94; PULSE 100
--- NOTE | 2023-09-17 12:35 | P.PN ---
Progress Note - Text Progress Note Date: 09/17/23 Addendum to the progress note from 09/16/2023. After seeing the patient on 09/16/2023, I decided to that sampling of the endometrial tissue would be the better approach rather than to wait for the pelvic ultrasound since she has been having vaginal bleeding on most days or more than one month. It is likely that endometrial sampling would be indicated regardless of the findings of the pelvic ultrasound. The patient was scheduled for an endometrial biopsy today. See the procedure note for further details. I will continue to have her get the pelvic ultrasound on 09/19/2023 not only to determine endometrial thickness, but to further evaluate the uterus and ovaries. An irregularity is noted on the exam possibly suggestive of a posterior uterine fibroid.
== END ==
LOC: WWCWWP 11:14
PROVIDERS: ATTEND Obstetrics & Gynecology
DX: N84.0 Polyp of corpus uteri (principal); N95.0 Postmenopausal bleeding
CPT/HCPCS: 58100; 88305

== ENCOUNTER → 2023-09-19 | Outpatient (CLI) | payer MEDICARE ==
--- NOTE | 2023-09-19 15:59 | US ---
EXAMINATION TYPE: US pelvis complete transvag DATE OF EXAM: 09/19/2023 COMPARISON: NONE CLINICAL INDICATION: Female, 57 years old with history of N95.0 POST MENOPAUSAL BLEEDING; post dori x 1.5 years, post dori bleeding x 4 weeks, Bx performed 2 days ago TECHNIQUE: Transvaginal (TV) and Transabdominal (TA) . Transabdominal sonographic images of the pel vis were acquired. Transvaginal sonographic images were medically necessary to better assess the fol lowing anatomy: Endometrium Date of LMP: 1.5 yrs ago EXAM MEASUREMENTS: Uterus: 9.3x5.6x5.4 cm Endometrial Stripe: 2.4 cm Right Ovary: 2.0x0.8x1.5 cm Left Ovary: 2.1x1.3x1.6 cm 1. Uterus: Anteverted but intermittently becomes retroverted. There is a very heterogeneous myomet rium. A round area adjacent to the endometrium measures 9 mm. Possible small fibroid. 2. Endometrium: thickened, heterogenous 3. Right Ovary: wnl 4. Left Ovary: wnl 5. Bilateral Adnexa: Obscured by overlying bowel gas 6. Posterior cul-de-sac: wnl Insurance Administrative Assistant notes: Exam limited by bowel, body habitus, and position of uterus IMPRESSION: 1. Tello endometrial heterogeneity and thickening up to 2.4 cm. Differential considerations include e ndometrial carcinoma and endometrial hyperplasia. Appropriate further evaluation recommended. 2. No specific abnormality of the ovaries.
== END | disposition home or self-care (01) ==
LOC: RADUSWWP 13:49
PROVIDERS: ATTEND Obstetrics & Gynecology
DX: N83.8 Other noninflammatory disorders of ovary, fallopian tube and broad ligament (principal); N95.0 Postmenopausal bleeding
CPT/HCPCS: 76830; 76856

== ENCOUNTER → 2023-10-02 | Outpatient (CLI) | payer MEDICARE ==
[2023-10-02 15:21] LABS: Basophils # (A) 0.05 X 10*3/uL (0.00-0.10); Basophils % (A) 0.8 %; Eosinophils # (A) 0.14 X 10*3/uL (0.04-0.35); Eosinophils % (A) 2.2 %; HCT 40.8 % (37.2-50.0); HGB 12.9 g/dL (12.0-17.0); Lymphocytes # (A) 1.12 X 10*3/uL (0.90-5.00); Lymphocytes % (A) 17.5 %; MCH 28.2 pg (27.0-32.0); MCHC 31.6 g/dL (32.0-37.0); MCV 89.3 FL (80.0-97.0); Mean Platelet Volume 9.6 FL (9.5-12.2); Monocytes # (A) 0.52 X 10*3/uL (0.20-1.00); Monocytes % (A) 8.1 %; NRBC Per 100 WBC 0 X 10*3/uL (0.00-0.01); Neutrophils # (A) 4.53 X 10*3/uL (1.80-7.70); Neutrophils % (A) 70.9 %; Platelet Count 261 X 10*3/uL (140-440); RBC 4.57 X 10*6/uL (4.10-5.60); RDW 13.9 % (11.5-14.5); WBC 6.39 X 10*3/uL (4.50-10.00)
== END | disposition home or self-care (01) ==
LOC: LABPAT 10:42
PROVIDERS: ATTEND Obstetrics & Gynecology
DX: Z01.812 Encounter for preprocedural laboratory examination (principal); N95.0 Postmenopausal bleeding; N84.0 Polyp of corpus uteri; R93.89 Abnormal findings on diagnostic imaging of other specified body structures
CPT/HCPCS: 36415; 85025

== ENCOUNTER 2023-10-20 06:32 | Day surgery (SDC) | payer MEDICARE ==
[~2023-10-20 06:32] MED LIST: Pre Op ABX Message 1 EACH MISC MISCELLANE ONE
[2023-10-20] MEDS ORDERED: HYDROmorphone 0.5 MG/0.5 ML SYRINGE IVP PRN (07:00)
[2023-10-20] MEDS: LACTATED RINGERS 1,000 ML IV SCH (07:08)
[2023-10-20] MEDS: ONDANSETRON 4 MG/2 ML VIAL IVP ONE (07:10)
[2023-10-20] MEDS: MIDAZOLAM 2 MG/2 ML VIAL IVP ONE (07:10)
[2023-10-20] MEDS: DEXAMETHASONE SOD PHOSPHATE 4 MG/ML 1 ML VIAL IV ONE (07:10)
[2023-10-20 07:19] LABS: Glucose,Whole Blood 106 mg/dL (70-110)
[2023-10-20] MEDS ORDERED: PROPOFOL 10 MG/ML 20 ML VIAL IV ONE (08:03)
[2023-10-20] MEDS ORDERED: SUCCINYLCHOLINE CHLORIDE 200 MG/10 ML VIAL IV ONE (08:03)
[2023-10-20] MEDS ORDERED: fentaNYL (PF) 50 MCG/ML 2 ML AMP ONE (08:03)
[2023-10-20] MEDS ORDERED: LIDOCAINE 1% INJ 10MG/ML (20 ML MDV) ONE (08:03)
[2023-10-20] MEDS ORDERED: KETOROLAC 15 MG/ML 1 ML VIAL IVP PRN (08:48)
[2023-10-20] MEDS ORDERED: Acetaminophen-Codeine 300-30mg TAB PO PRN ×2 (08:48)
[2023-10-20] MEDS ORDERED: METOCLOPRAMIDE 5 MG/ML 2 ML VIAL IVP PRN (08:48)
[2023-10-20] MEDS ORDERED: ONDANSETRON 4 MG/2 ML VIAL IVP PRN (08:48)
[2023-10-20] MEDS ORDERED: diphenhydrAMINE 50 MG/ML 1 ML VIAL IVP PRN (08:48)
[2023-10-20] MEDS ORDERED: IBUPROFEN 600 MG TAB PO PRN (08:48)
[2023-10-20] MEDS ORDERED: SIMETHICONE 80 MG CHEWABLE PO PRN (08:48)
--- NOTE | 2023-10-20 08:55 | P.OP ---
Date of Procedure: 10/20/23 Preoperative Diagnosis: #1. Postmenopausal bleeding #2. Probable endometrial polyp Postoperative Diagnosis: Same Procedure(s) Performed: #1. Diagnostic hysteroscopy #2. Endometrial polypectomy 3. Endometrial curettage Anesthesia: CORBIN Surgeon: Thanh Leal Estimated Blood Loss (ml): 2 IV fluids (ml): 300 Urine output (ml): 30 Pathology: other (Endometrial curettings and probable polyp) Condition: stable Disposition: PACU Operative Findings: Preoperative pelvic examination demonstrated a 4-5 week retroverted mobile normal shaped uterus with normal adnexa bilaterally. Intraoperatively, the uterus sounded to approximately 8 cm. Using the hysteroscope, the bilateral tubal ostia were seen and the endometrial cavity itself appeared atrophic as a general rule with a fairly large polyp arising from the mid to lower uterine segment on the posterior side filling most the posterior portion of the cavity. It appeared to be removed mostly intact with a polyp forceps. The typical gritty texture was noted throughout the in vitro cavity with sharp curettage. The patient is a borderline candidate for vaginal hysterectomy should become necessary. Description of Procedure: The patient was prepped and draped in usual fashion after general endotracheal anesthesia was administered by the anesthesiologist. A weighted speculum was placed and the bladder drained of approximately 30 mL of clear bhupinder urine. The anterior lip of the cervix was grasped with a single-tooth tenaculum and the uterus sounded to 8 cm as noted above. Serial dilation was carried out to admit the diagnostic hysteroscope which was placed and the cavity was distended with sorbitol. The findings are as noted above with the bilateral tubal ostia seen in general atrophy present throughout. There did appear to be a fairly large polyp arising likely from the posterior portion of the lower endometrial cavity and filling most of the midportion of the cavity. After adequate hysteroscopy was carried out, the scope was set aside and polyp forceps introduced. Several passes with the polyp forceps produced what appeared to be the entire polyp. Small pieces were then removed to follow with nothing of significance noted. A medium sharp curette was introduced into the cavity and thorough and circumferential curettage carried out onto a Telfa placed in the vagina with the typical gritty texture encountered throughout. There was no significant amount of tissue encountered or removed with curettage. All instrumentation was then removed. There is no significant ongoing bleeding either from the cervix or from the tenaculum site. Assessment a blood loss for the case was 2 mL or less. There were no complications. All sponge, instrument, needle counts were correct. The patient tolerated the procedure well and proceeded to the recovery room in stable condition.
[2023-10-20] MEDS ORDERED: LACTATED RINGERS 1,000 ML IV SCH (09:00)
[2023-10-20 09:10] VITALS: TEMP 97.1
[2023-10-20 09:43] VITALS: RESP 16
[2023-10-20 10:14] VITALS: BP 139/78; PULSE 83
[2023-10-21] MEDS ORDERED: ACETAMINOPHEN TAB 325 MG TAB PO PRN (08:50)
== END 2023-10-20 10:12 | disposition home or self-care (01) ==
LOC: OR 06:32
PROVIDERS: ATTEND Obstetrics & Gynecology
DX: N95.0 Postmenopausal bleeding (principal); N84.0 Polyp of corpus uteri; K21.9 Gastro-esophageal reflux disease without esophagitis; E78.5 Hyperlipidemia, unspecified; F41.9 Anxiety disorder, unspecified; F32.A Depression, unspecified; Z98.890 Other specified postprocedural states; Z79.899 Other long term (current) drug therapy; Z90.89 Acquired absence of other organs; Z79.82 Long term (current) use of aspirin; Z88.2 Allergy status to sulfonamides
CPT/HCPCS: 58558; J2250; J0330; J1100; J2405; J2001; J3010; J2704; 88305

== ENCOUNTER 2023-12-03 08:16 | Day surgery (SDC) | payer MEDICARE ==
[2023-12-01 16:26] VITALS: BMI 31.9
[~2023-12-03 08:16] MED LIST changes: +LIDOCAINE 1% (10MG/ML) FOR IV START INTRADERMA PRN; -Pre Op ABX Message 1 EACH MISC MISCELLANE ONE
[2023-12-03] MEDS: LACTATED RINGERS 1,000 ML IV SCH (08:50)
[2023-12-03 08:58] LABS: Glucose,Whole Blood 100 mg/dL (70-110)
[2023-12-03 09:16] VITALS: TEMP 97
[2023-12-03] MEDS ORDERED: PROPOFOL 10 MG/ML 20 ML VIAL IV ONE (09:21)
--- NOTE | 2023-12-03 09:53 | P.PCN ---
Date of Procedure: 12/03/23 Procedure(s) Performed: BRIEF HISTORY: Patient is a 58-year-old pleasant White female scheduled for an elective colonoscopy as a part of Screening for colon cancer. PROCEDURE PERFORMED: ColonoscopyWith snare polypectomy. PREOPERATIVE DIAGNOSIS: Screening for colon cancer. IV sedation per Anesthesia. PROCEDURE: After informed consent was obtained, the patient, was brought into the endoscopy unit. IV sedation was administered by Anesthesia under continuous monitoring. Digital rectal examination was normal. Initially the Olympus CF-160 flexible video colonoscope was then inserted in the rectum, gradually advanced into the Left colon and further advancement was not possible. Scope was then removed and a pediatric colonoscopy was then introduced into the rectum and gradually advanced into the cecum with moderate to severe difficulty.Careful examination was performed as the scope was gradually being withdrawn. Ileocecal valve and the appendiceal orifice were visualized and appeared normal. Prep was excellent. Mucosa of the cecum, ascending colon, transverse colon, descending colon, Appeared normal. In the sigmoid there was a 5 mm sessile polyp removed by cold snare polypectomy. Rest of thesigmoid colon, and rectum appeared normal. Retroflexion was performed in the rectum and no lesions were seen. The patient tolerated the procedure well. IMPRESSION: 5 mm;Sigmoid polyp status post snare polypectomy Rest of the colon appeared normal RECOMMENDATIONS: Findings of this examination were discussed with the patient As well as her family. She was advised to follow with the biopsy results. If the biopsy results adenoma she can have a repeat colonoscopy in.
[2023-12-03 10:05] LABS: Glucose,Whole Blood 100 mg/dL (70-110)
[2023-12-03 11:16] VITALS: BP 131/78; PULSE 77; RESP 18
== END 2023-12-03 10:41 | disposition home or self-care (01) ==
LOC: ORWHC2ENDO 08:16
PROVIDERS: ATTEND Internal Medicine Gastroenterology
DX: Z12.11 Encounter for screening for malignant neoplasm of colon (principal); D12.5 Benign neoplasm of sigmoid colon; E78.5 Hyperlipidemia, unspecified; Z79.899 Other long term (current) drug therapy; Z88.2 Allergy status to sulfonamides; Z79.82 Long term (current) use of aspirin; Z90.89 Acquired absence of other organs; Z98.890 Other specified postprocedural states
CPT/HCPCS: 88305; 45385; J2704

== ENCOUNTER → 2024-04-23 | Outpatient (CLI) | payer MEDICARE | END | disposition home or self-care (01) | LOC: LABWHC1 16:30 | PROVIDERS: ATTEND Ophthalmology | DX: Z53.9 Procedure and treatment not carried out, unspecified reason (principal) ==

== ENCOUNTER → 2024-05-25 | Outpatient (CLI) | payer MEDICARE ==
[2024-05-25 16:27] LABS: Basophils # (A) 0.07 X 10*3/uL (0.00-0.10); Basophils % (A) 1.1 %; Eosinophils # (A) 0.18 X 10*3/uL (0.04-0.35); HCT 41.6 % (37.2-50.0); HGB 13.3 g/dL (12.0-17.0); Lymphocytes # (A) 0.99 X 10*3/uL (0.90-5.00); Lymphocytes % (A) 16.2 %; MCH 28.4 pg (27.0-32.0); MCV 88.9 FL (80.0-97.0); Mean Platelet Volume 10.2 FL (9.5-12.2); Monocytes # (A) 0.35 X 10*3/uL (0.20-1.00); Monocytes % (A) 5.7 %; NRBC Per 100 WBC 0 X 10*3/uL (0.00-0.01); Neutrophils # (A) 4.49 X 10*3/uL (1.80-7.70); Neutrophils % (A) 73.7 %; Platelet Count 272 X 10*3/uL (140-440); RBC 4.68 X 10*6/uL (4.10-5.60); RDW 14.1 % (11.5-14.5)
[2024-05-25 17:11] LABS: ALT 25 U/L (8-49); AST 18 U/L (13-35); Albumin 4.3 g/dL (3.8-4.9); Albumin/Globulin Ratio 1.87 Ratio (1.60-3.17); Alkaline Phosphatase 159 U/L (41-126); BUN/Creat Ratio 18.11 Ratio (12.00-20.00); Blood Urea Nitrogen 16.3 mg/dL (9.0-27.0); Calcium 9.3 mg/dL (8.7-10.3); Carbon Dioxide 25.6 mmol/L (21.6-31.8); Chloride 105 mmol/L (96-109); Chol/HDL Ratio 3.04 Ratio; Globulin 2.3 g/dL (1.6-3.3); Glucose 92 mg/dL (70-110); LDL Cholesterol,Calculated 70.3 mg/dL (0.0-131.0); Potassium 4.4 mmol/L (3.5-5.5); Sodium 142 mmol/L (135-145); T4, Free (Free Thyroxine) 0.94 ng/dL (0.80-1.80); Total Bilirubin 0.3 mg/dL (0.3-1.2); Total Protein 6.6 g/dL (6.2-8.2); VLDL Calculation 19.58 mg/dL (5.00-40.00)
== END | disposition home or self-care (01) ==
LOC: LABWHC1 09:05
PROVIDERS: ATTEND Internal Medicine Critical Care Medicine
DX: Z00.00 Encounter for general adult medical examination without abnormal findings (principal); C85.90 Non-Hodgkin lymphoma, unspecified, unspecified site; K21.9 Gastro-esophageal reflux disease without esophagitis; K76.5 Hepatic veno-occlusive disease; E78.00 Pure hypercholesterolemia, unspecified; D64.9 Anemia, unspecified
CPT/HCPCS: 36415; 80053; 80061; 82306; 83036; 84439; 84443; 85025

== ENCOUNTER → 2024-07-06 | Outpatient (CLI) | payer MEDICARE ==
[2024-07-06 09:49] VITALS: BP 128/82; PULSE 82; RESP 16; TEMP 98.3
--- NOTE | 2024-07-06 14:57 | P.HPOB ---
History of Present Illness H&P Date: 07/06/24 Chief Complaint: The patient is here for her routine gynecologic exam. This is a 58-year-old -0-3-3 with an LNMP of October 2021. The patient experienced some light postmenopausal bleeding September and October of this year. She was referred to Dr. Leal who did a hysteroscopy with D&C on 10/20/2023 which came back benign and there was a benign endometrial polyp. She states she did have 1 day of spotting less than 2 months after the hysteroscopy and D&C. She denies any bleeding since then. She has been experiencing some bladder leakage with coughing or sneezing as well as bending over. She states it is pretty instantaneous. She has had some leakage since her pregnancies. She denies urge incontinence. She would like to see somebody about this. Review of Systems The patient has gained 4 pounds over the last year. She denies respiratory, cardiac, or G.I. problems. : Some stress urinary incontinence as described in the HPI. Past Medical History Past Medical History: Blood Disorder, Cancer, GERD/Reflux Additional Past Medical History / Comment(s): Waldenstrom lymphoplasmacytic lymphoma 2015, diagnosed at [facility] and tx by Dr. Arellano; spleenomegaly; anemia, HYPOGLYCEMIA; ANTIPHOSPHOLIPID ANTIBODY SYNDROME. Migraine. PAST NATIONAL ACCOUNT MANAGER HISTORY: She has no history of STDs. History of Any Multi-Drug Resistant Organisms: None Reported Past Surgical History: Orthopedic Surgery, Tonsillectomy Additional Past Surgical History / Comment(s): Bone marrow aspirations and biopsies-done at [place] 12/2015, RT ankle/foot surgeryfor fascitis, D&C, hysteroscopy(10/20/23). Colonoscopy 2014(3rd), EGD's 08/2015, bilateral leg vein strippings. D&Cs. Colonoscopy 12/03/2023. Past Anesthesia/Blood Transfusion Reactions: No Reported Reaction Additional Past Anesthesia/Blood Transfusion Reaction / Comment(s): Mother had PONV. Past Psychological History: Anxiety Additional Psychological History / Comment(s): OCD. Smoking Status: Former smoker Past Alcohol Use History: Occasional (2 drinks per month.) Additional Past Alcohol Use History / Comment(s): SMOKED 6 YRS ON/OFF, 1/2 PPD- quit in 1997. Past Drug Use History: None Reported Additional History: She is and is a retired schoolteacher. - Past Family History Mother Family Medical History: Cancer, Myocardial Infarction ([place]) Additional Family Medical History / Comment(s): Breast & Kidney cancers. . Father Family Medical History: Cancer Additional Family Medical History / Comment(s): Father of breast cancer at the age of 58 yrs. A paternal aunt had breast cancer. The patient is BRCA negative. Medications and Allergies Home Medications Medication Instructions Recorded Confirmed Type Aspirin 325 mg PO QAM 08/16/15 07/06/24 History Escitalopram [Lexapro] 30 mg PO QAM 08/16/15 07/06/24 History Ferrous Sulfate [Iron (65 MG 325 mg PO QAM 01/17/16 07/06/24 History Elemental)] Multivitamins, Thera [Multivitamin 1 tab PO QAM 01/17/16 07/06/24 History (formulary)] Cholecalciferol [Vitamin D3] 6,000 unit PO QAM 11/25/18 07/06/24 History Omeprazole 20 mg PO QAM 11/25/18 07/06/24 History Atorvastatin [Lipitor] 20 mg PO QAM 10/17/23 07/06/24 History Meclizine HCl 12.5 mg PO QAM 10/17/23 07/06/24 History Allergies Allergy/AdvReac Type Severity Reaction Status Date / Time Sulfa (Sulfonamide Allergy Rash/Hives Verified 07/06/24 09:39 Antibiotics) Exam Vital Signs Temp Pulse Resp BP Pulse Ox 07/06/24 09:45 98.3 F 82 16 128/82 95 Intake and Output 07/05/24 07/06/24 07/06/24 22:59 06:59 14:59 Other: Weight 105.687 kg Height 5 feet 11 inches, weight 233 pounds, BMI 32.5. This is a well-developed well-nourished white female who is alert and oriented times 3 in no acute distress. HEENT: Within normal limits. NECK: Supple without mass or thyromegaly. CHEST AND LUNGS: Clear to auscultation. HEART: Regular rate and rhythm. BREASTS: Are without mass or discharge. AXILLARY EXAM: Negative for adenopathy. BACK: Negative for CVA tenderness. ABDOMEN: Soft, nontender, without palpable masses. PELVIC EXAM: Normal external genitalia mild atrophy. Cervix and vagina appear normal with mild atrophy. There is no unusual discharge. There is no evidence of prolapse. With cough and Valsalva there is mild urethral mobility without demonstration of urinary leakage. The uterus is midposition, nongravid size and nontender. There are no palpable adnexal masses or tenderness. RECTAL EXAM: Rectovaginal exam is negative for mass or tenderness and is negative for occult blood. EXTREMITIES: Nontender. IMPRESSION: 1. 58-year-old menopausal female with normal gynecologic exam. 2. Worsening stress urinary incontinence with mild urethral mobility. 3. Strong history of breast cancer including her father who had breast cancer. 4. Previous Pap smear on 11/06/2021 showed ASCUS with negative high risk HPV testing. PLAN: 1. Pap smear cotest was performed. Management per the ASCCP management guidelines to follow. 2. Self breast awareness was discussed with the patient. We have also discussed symptoms associated with inflammatory breast cancer. 3. Screening mammogram is due and the order slip was given to the patient for this. She will also do a bilateral breast MRI in 6 months. We will continue to alternate these every 6 months. The order slip was given to the patient for the MRI of the breasts. 4. Osteoporosis prevention was discussed. I have stressed the importance of adequate calcium, vitamin D and regular exercise. Recommended amounts of calcium and vitamin D were also discussed. She will plan on having a bone density test in 1 year. 5. We have discussed Kegel exercises and timed voids. She will also try this for her urinary incontinence. She will be referred to Dr. Héctor Manzo for further evaluation and possible treatment. 6. She was advised to return in one year for her annual well woman exam and as needed.
== END ==
LOC: WWCWWP 09:30
PROVIDERS: ATTEND Obstetrics & Gynecology
DX: Z01.419 Encounter for gynecological examination (general) (routine) without abnormal findings (principal); N39.3 Stress incontinence (female) (male); N84.0 Polyp of corpus uteri; Z78.0 Asymptomatic menopausal state; Z80.3 Family history of malignant neoplasm of breast; Z87.891 Personal history of nicotine dependence; Z85.3 Personal history of malignant neoplasm of breast; Z88.2 Allergy status to sulfonamides

== ENCOUNTER → 2024-09-13 | Outpatient (CLI) | payer MEDICARE ==
--- NOTE | 2024-09-13 11:24 | MM ---
Reason for Exam: Screening (asymptomatic). Last mammogram was performed 1 year(s) and 2 month(s) ago. Patient History: Menarche at age 11. First Full-Term at age 35. Late child-bearing (after 30). Patient tested for BRCA1 outcome was negative. Patient tested for BRCA2 outcome was negative. Paternal aunt had breast cancer at or over age 50. Maternal cousin had breast cancer at or over age 50. Mother had breast cancer, age 60. Father had breast cancer at or over age 50. Risk Values: Jalyn 5 year model risk: 2.8%. NCI Lifetime model risk: 14.6%. Prior Study Comparison: 08/11/2020 Bilateral Screening Mammogram, Unknown. 11/01/2021 Bilateral Screening Mammogram, Unknown. 07/30/2023 Bilateral MG 3D screening mammo w/cad, [facility]. Tissue Density: There are scattered areas of fibroglandular density. Analyzed By CAD. Overall Assessment: Negative, BI-RAD 1 Management: Screening Mammogram of both breasts in 1 year. Electronically signed and approved by: Jorge Hickey M.D.
== END | disposition home or self-care (01) ==
LOC: RADMAMWWP 07:58
PROVIDERS: ATTEND Obstetrics & Gynecology
DX: Z12.31 Encounter for screening mammogram for malignant neoplasm of breast (principal); Z80.3 Family history of malignant neoplasm of breast; R92.323 Mammographic fibroglandular density, bilateral breasts
CPT/HCPCS: 77063; 77067